=== PATIENT | male | born 1960 | race African-American/Black ===

== ENCOUNTER 2023-08-30 13:08 | Emergency (ER) | payer OTHER ==
[~2023-08-30] VITALS: Ht 170.2 cm; Wt 73.0 kg
[2023-08-30 13:10] VITALS: BP 121/71; PULSE 65; RESP 16; TEMP 98.6; O2SAT 100
[2023-08-30] MEDS ORDERED: NITROGLYCERIN 0.4MG TABLET SL SL PRN (14:00)
[2023-08-30] MEDS ORDERED: ASPIRIN 81MG TABLET PO ONE (14:00)
[2023-08-30 14:08] LABS: BASOPHILS % 0.8 % (0.0-2.0); HEMATOCRIT. 40.2 % (42.0-52.0); HEMOGLOBIN. 13.7 g/dL (14.0-18.0); LYMPHOCYTES % 28.8 % (20.0-50.0); MEAN PLATELET VOLUME 7.6 fl (7.4-10.4); MONOCYTES % 6.8 % (2.0-8.0); NEUTROPHILS % 60.6 % (40.0-76.0); PLATELET 182 x1000/uL (130-400); RED BLOOD CELL COUNT 4.27 mill/uL (4.7-6.1); WHITE BLOOD COUNT 4.8 x1000/uL (4.5-11.0)
[2023-08-30 14:54] LABS: ALANINE AMINOTRANSFERASE 11 IU/L (10-49); ALBUMIN 4.1 g/dL (3.2-4.8); ASPARTATE AMINOTRANSFERASE 20 IU/L (<34); BILIRUBIN TOTAL 0.2 mg/dL (0.1-1.0); CALCIUM 9.4 mg/dL (8.7-10.4); CARBON DIOXIDE 31 mEq/L (21-32); CHLORIDE 108 mEq/L (98-107); CREATININE 1.3 mg/dL (0.6-1.3); GLUCOSE 74 mg/dL (70-105); POTASSIUM 4.2 mEq/L (3.5-5.1); PROTEIN TOTAL 7.6 g/dL (6.0-8.3); SODIUM 145 mEq/L (136-145); TROPONIN I HIGH SENSITIVITY 4 ng/L (3.0-53); UREA NITROGEN BLOOD 15 mg/dL (9-23)
[2023-08-30] MEDS ORDERED: ASPIRIN 81MG TABLET PO NR (15:30)
[2023-08-30 16:38] LABS: PARTIAL THROMBOPLASTIN TIME 32.8 sec (23.4-31.0); PROTHROMBIN TIME 10.3 sec (9.6-11.0)
== END 2023-08-30 16:30 | disposition left against medical advice (07) ==
LOC: ER 13:08 → CANBEDREQ 09-01 15:52
DX: R07.9 Chest pain, unspecified (principal); E78.00 Pure hypercholesterolemia, unspecified; F17.200 Nicotine dependence, unspecified, uncomplicated
CPT/HCPCS: 80053; 83880; 85025; 85379; 85610; 85730; 84484; 36415; 71045; 93005; 99285; Z7610